=== PATIENT | male | born 1965 | race Caucasian/White ===

== ENCOUNTER 2021-09-24 13:59 | Emergency (ER) | payer OTHER, SELFPAY ==
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
[2021-09-24 14:02] VITALS: BP 126/73; PULSE 103; RESP 18; TEMP 36.9; O2SAT 100
[2021-09-24 17:27] VITALS: BP 166/112; PULSE 110; RESP 20; TEMP 36.4; O2SAT 100
--- NOTE | 2021-09-24 17:57 | PC.NURSE ---
pt to CT at this time.
[2021-09-24 18:32] VITALS: BP 177/96; PULSE 95; RESP 16; O2SAT 98
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
[2021-09-24 18:57] VITALS: BP 149/93; PULSE 78; RESP 18; O2SAT 98
== END 2021-09-24 19:00 | disposition home or self-care (01) ==
PROVIDERS: Emergency Provider Family Medicine; PCP Family Medicine
DX: S09.90XA Unspecified injury of head, initial encounter (principal); V43.62XA Car passenger injured in collision with other type car in traffic accident, initial encounter
CPT/HCPCS: 70450; 99284